=== PATIENT | female | born 1960 | race African-American/Black ===

== ENCOUNTER 2016-10-18 10:02 | Inpatient (IN) | payer OTHER ==
[2016-10-18 10:40] VITALS: BMI 32.3
--- NOTE | 2016-10-18 12:30 | HP ---
CIWA Score - CIWA Score Nausea/Vomitin-No Nausea/No Vomiting Muscle Tremors: 4-Moderate,w/Arms Extend Anxiety: 4-Mod. Anxious/Guarded Agitation: 4-Moderately Restless Paroxysmal Sweats: 1-Minimal Palms Moist Orientation: 0-Oriented Tacttile Disturbances: 3-Moderate Itch/Numb/Burn Auditory Disturbances: 0-None Visual Disturbances: 0-None Headache: 0-None Present CIWA-Ar Total Score: 16 Admission ROS BHS - HPI Chief Complaint: DETOX TX FOR ALCOHOL DEPENDENCE Allergies/Adverse Reactions: Allergies Allergy/AdvReac Type Severity Reaction Status Date / Time No Known Allergies Allergy Verified 10/18/16 11:22 History of Present Illness: 56 Y/O AA/FEMALE WITH A HX OF ALCOHOL DEPENDENCE SEEKING DETOX TX. Exam Limitations: No Limitations - Ebola screening Have you traveled outside of the country in the last 21 days: No Have you had contact with anyone from an Ebola affected area: No Have you been sick,other than usual withdrawal symptoms: No Do you have a fever: No - Review of Systems Constitutional: Chills, Night Sweats, Changes in sleep EENT: reports: Blurred Vision (WEARS GLASSES), Tearing, Nose Congestion, Dental Problems (MISSING TEETH) Respiratory: reports: No Symptoms reported Cardiac: reports: Lightheadedness GI: reports: Constipated, Diarrhea, Abdominal cramping : reports: Frequency Musculoskeletal: reports: Back Pain, Joint Pain, Muscle Pain, Other (HX ARTHRITIS) Integumentary: reports: Rash (RIGHT FOOT) Neuro: reports: Unsteady Gait Endocrine: reports: No Symptoms Reported Hematology: reports: Anemia Psychiatric: reports: Orientated x3, Agitated, Anxious, Depressed (HX DEPRESSION ) Other Systems: Reviewed and Negative Patient History - Patient Medical History Hx Anemia: Yes (NO CURRENT MED) Hx Asthma: No Hx Chronic Obstructive Pulmonary Disease (COPD): No Hx Cancer: No Hx Cardiac Disorders: No Hx Congestive Heart Failure: No Hx Hypertension: No Hx Hypercholesterolemia: No (NOT SURE ) Hx Pacemaker: Yes (ON MED) HX Cerebrovascular Accident: No Hx Seizures: No Hx Dementia: No Hx Diabetes: No Hx Gastrointestinal Disorders: No Hx Liver Disease: No Hx Genitourinary Disorders: No Hx Sexually Transmitted Disorders: No Hx Renal Disease (ESRD): No Hx Thyroid Disease: No Hx Human Immunodeficiency Virus (HIV): No (LAST 11/09 NEGATIVE) Hx Hepatitis C: No Hx Depression: Yes (NO DEPAKOTE) Hx Suicide Attempt: No (DENIES) Hx Bipolar Disorder: No Hx Schizophrenia: No - Patient Surgical History Past Surgical History: Yes Hx Neurologic Surgery: No Hx Cataract Extraction: No Hx Cardiac Surgery: No Hx Lung Surgery: No Hx Breast Surgery: No Hx Breast Biopsy: No Hx Abdominal Surgery: No Hx Appendectomy: No Hx Cholecystectomy: No Hx Genitourinary Surgery: No Hx Section: No Hx Orthopedic Surgery: Yes (rt big toe 2008 BUNION) Other Surgical History: tubal ligation at age 26 Varicose veins bilateral sx. 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 History Hx Alcohol Use: Yes (VODKA/BEER) Hx Substance Use: Yes (CRACK) Substance Use Type: Alcohol, Cocaine Hx Substance Use Treatment: Yes ([facility]) - Substances Abused Alcohol Route: Oral Frequency: Daily Amount used: 1 QT VODKA Age of first use: 34 Date of Last Use: 10/18/16 Crack Route: Smoking Frequency: Daily Amount used: $50 Age of first use: 32 Date of Last Use: 10/17/16 Family Disease History - Family Disease History Family Disease History: Heart Disease: Mother, Other: Sister (HTN) Admission Physical Exam S - Vital Signs Vital Signs: Vital Signs - 24 hr 10/18/16 10:13 Temperature 98.6 F Pulse Rate 76 Respiratory 18 Rate Blood Pressure 142/84 - Physical General Appearance: Yes: Moderate Distress, Alcohol on Breath, Intoxicated, Irritable, Anxious HEENTM: Yes: EOMI, Normocephalic, ODILIA, Pharynx Normal Respiratory: Yes: Chest Non-Tender, Lungs Clear, Normal Breath Sounds, No Respiratory Distress Breast: Yes: Breast Exam Deferred Cardiology: Yes: Regular Rhythm, Regular Rate, S1, S2 Abdominal: Yes: Normal Bowel Sounds, Non Tender, Soft Genitourinary: Yes: Other (N/C) Back: Yes: Within Normal Limits Musculoskeletal: Yes: full range of Motion, Gait Steady Extremities: Yes: Normal Range of Motion, Non-Tender 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, Fully Oriented, Alert, Motor Strength 5/5 Integumentary: Yes: Dry, Warm, Rash (RIGHT FOOT) Lymphatic: Yes: Within Normal Limits - Diagnostic (1) Alcohol dependence with uncomplicated withdrawal Current Visit: Yes Status: Acute (2) Cocaine dependence Current Visit: Yes Status: Chronic Qualifiers: Substance use status: uncomplicated Qualified Code(s): F14.20 - Cocaine dependence, uncomplicated (3) Nicotine dependence Current Visit: Yes Status: Chronic Qualifiers: Nicotine product type: cigarettes Substance use status: uncomplicated Qualified Code(s): F17.210 - Nicotine dependence, cigarettes, uncomplicated (4) Tinea pedis Current Visit: Yes Status: Chronic Qualifiers: Laterality: right Qualified Code(s): B35.3 - Tinea pedis (5) History of anemia Current Visit: Yes Status: Suspected Cleared for Admission [facility] - Detox or Rehab [facility] Level of Care: Medically Managed Detox Regimen/Protocol: Librium [facility] Breath Alcohol Content Breath Alcohol Content: 0.029 Urine Pregancy Test - Result Urine Test Results: Negative- NO Line Present Urine Drug Screen - Results Drug Screen Negative: No Urine Drug Screen Results: MALDONADO-Cocaine
[2016-10-18] MEDS ORDERED: ACETAMINOPHEN 325 MG TABLET (FP) PO PRN (12:38)
[2016-10-18] MEDS ORDERED: diphenhydrAMINE HCL 50 MG CAPSULE PO PRN (12:38)
[2016-10-18] MEDS ORDERED: MAGNESIUM CITRATE 300 ML BOTTLE PO PRN (12:38)
[2016-10-18] MEDS ORDERED: guaiFENesin/D-METHORPHAN HB 10 ML UNIT-DOSE CUPS PO PRN (12:38)
[2016-10-18] MEDS ORDERED: MAGNESIUM HYDROX 2400MG/30ML ORAL SUSPENSION 30 ML CUP PO PRN (12:38)
[2016-10-18] MEDS ORDERED: hydrOXYzine PAMOATE 25 MG CAPSULE (FP) PO PRN (12:38)
[2016-10-18] MEDS ORDERED: IBUPROFEN 400 MG TABLET (FP) PO PRN (12:38)
[2016-10-18] MEDS ORDERED: P-EPHED 60MG/TRIPROLIDI 2.5MG TABLET PO PRN (12:38)
[2016-10-18] MEDS ORDERED: chlordiazePOXIDE HCL 25 MG CAPSULE PO PRN (12:38)
[2016-10-18] MEDS ORDERED: MENTHOL/PHENOL 1 EACH UD MM PRN (12:38)
[2016-10-18] MEDS: CYCLOBENZAPRINE HCL 10 MG TABLET (FP) PO SCH ×2 (14:48→22:57)
[2016-10-18] MEDS: NICOTINE 14 MG/24 HOURS TOPICAL PATCH TD SCH (15:00)
[2016-10-18] MEDS: MAG HYDROX/AL HYDROX/SIMETH 30 ML UNIT-DOSE CUP PO PRN (16:15)
[2016-10-18 16:43] LABS: URINE APPEARANCE CLEAR; URINE BILIRUBIN NEGATIVE (NEGATIVE); URINE BLOOD NEGATIVE (NEGATIVE); URINE COLOR LTYELLOW; URINE GLUCOSE (UA) NEGATIVE (NEGATIVE); URINE KETONE NEGATIVE (NEGATIVE); URINE LEUK ESTERASE NEGATIVE (NEGATIVE); URINE NITRITE NEGATIVE (NEGATIVE); URINE PROTEIN NEGATIVE (NEGATIVE); URINE UROBILINOGEN NEGATIVE E.U./dl (0.2-1.0)
[2016-10-18] MEDS: chlordiazePOXIDE HCL 25 MG CAPSULE PO SCH ×2 (17:57→22:57)
[2016-10-18] MEDS: ATORVASTATIN CA 10 MG TABLET (FP) PO SCH (22:57)
[2016-10-18] MEDS: NAPROXEN 500 MG TABLET (FP) PO SCH (22:57)
[2016-10-18] MEDS: THIAMINE HCL 100 MG TABLET (FP) PO SCH (22:57)
[2016-10-19] MEDS: MAG HYDROX/AL HYDROX/SIMETH 30 ML UNIT-DOSE CUP PO PRN ×2 (02:16→17:52)
[2016-10-19] MEDS: chlordiazePOXIDE HCL 25 MG CAPSULE PO SCH ×4 (05:52→22:35)
[2016-10-19] MEDS: CYCLOBENZAPRINE HCL 10 MG TABLET (FP) PO SCH ×3 (05:52→22:35)
[2016-10-19] MEDS ORDERED: cloNIDine HCL 0.1 MG TABLET PO ONE (07:29)
[2016-10-19 10:03] LABS: MCH 33.9 pg (25.7-33.7); MCHC 33.7 g/dl (32.0-36.0); MEAN CELL VOLUME 100.5 fl (80-96); MEAN PLT VOLUME 8.9 fl (7.5-11.1); PLATELET COUNT 232 K/MM3 (134-434); RDW 13.7 % (11.6-15.6); WHITE BLOOD COUNT 3.4 K/mm3 (4.0-10.0)
[2016-10-19] MEDS: PRENATAL VITAMINS W/ FOLIC ACID TABLET (FP) PO SCH (10:20)
[2016-10-19] MEDS: cloNIDine HCL 0.1 MG TABLET PO PRN ×2 (10:20→22:35)
[2016-10-19] MEDS: ASPIRIN COATED 81 MG TABLET.EC PO SCH (10:21)
[2016-10-19] MEDS: NAPROXEN 500 MG TABLET (FP) PO SCH ×2 (10:21→22:35)
[2016-10-19] MEDS: FLUTICASONE PROP 0.05% 16 GM NASAL SPRAY NS SCH (10:21)
--- NOTE | 2016-10-19 10:21 | CONSULT ---
[facility] Psychiatric Consult - Data Date of interview: 10/19/16 Admission source: [facility] Identifying data: This is 56 years old female with history of Bipolar disorder intoxicted with: Alcoholl, Cocaine and Nicotine Substance Abuse History: Smoking history: Current every day smoker. Have you smoked in the past 12 months: Yes. Aproximately how many cigarettes per day: 10. Hx Chewing Tobacco Use: No. Initiated information on smoking cessation: Yes. 'Breaking Loose' booklet given: 10/18/16. - Substance & Tx. History. Hx Alcohol Use: Yes (VODKA/BEER). Hx Substance Use: Yes (CRACK). Substance Use Type: Alcohol, Cocaine. Hx Substance Use Treatment: Yes ([facility]OX). - Substances Abused. Alcohol. Route: Oral. Frequency: Daily. Amount used: 1 QT VODKA. Age of first use: 34. Date of Last Use: 10/18/16. Crack. Route: Smoking. Frequency: Daily. Amount used: $50. Age of first use: 32. Date of Last Use: 10/17/16 Medical History: Anemia history, UTI history Psychiatric History: Patient reports to carry Bipolar disorder and satable on Depakote 500mg po bid, last time taking yesterday. Patient willing to contonue Depakote order Physical/Sexual Abuse/Trauma History: Denies Additional Comment: Depakote 500mg po bid Mental Status Exam - Mental Status Exam Alert and Oriented to: Person Cognitive Function: Fair Patient Appearance: Unkempt Mood: Anxious Patient Behavior: Cooperative Speech Pattern: Appropriate Voice Loudness: Normal Thought Process: Goal Oriented Thought Disorder: Being Controlled Hallucinations: Denies Suicidal Ideation: Denies Homicidal Ideation: Denies Insight/Judgement: Fair Sleep: Difficulty falling asleep Appetite: Weight gain Muscle strength/Tone: Normal Gait/Station: Normal Additional Comments: Depakote 500mg po bid Psychiatric Findings - Problem List ([place] 1, 2,3) (1) Alcohol dependence with uncomplicated withdrawal Current Visit: Yes Status: Acute (2) Cocaine dependence Current Visit: Yes Status: Chronic Qualifiers: Substance use status: uncomplicated Qualified Code(s): F14.20 - Cocaine dependence, uncomplicated (3) Nicotine dependence Current Visit: Yes Status: Chronic Qualifiers: Nicotine product type: cigarettes Substance use status: uncomplicated Qualified Code(s): F17.210 - Nicotine dependence, cigarettes, uncomplicated (4) Alcohol dependence Current Visit: No Status: Chronic (5) Bipolar II disorder Current Visit: No Status: Chronic (6) Bipolar disorder Current Visit: Yes Status: Acute - Initial Treatment Plan Initial Treatment Plan: Depakote 500mg po bid
[2016-10-19] MEDS: NICOTINE 14 MG/24 HOURS TOPICAL PATCH TD SCH (10:22)
[2016-10-19] MEDS: DIVALPROEX SODIUM 500 MG TABLET E.C. PO SCH ×2 (10:23→22:35)
[2016-10-19 10:29] LABS: ALBUMIN 3.6 g/dl (3.4-5.0); BILIRUBIN,TOTAL 0.4 mg/dL (0.2-1.0); CALCIUM 8.6 mg/dL (8.5-10.1); TOT PROT 6.9 g/dl (6.4-8.2)
[2016-10-19] MEDS: LOPERAMIDE HCL 2 MG CAPSULE PO PRN (11:34)
--- NOTE | 2016-10-19 12:08 | PN ---
S CIWA - CIWA Score Nausea/Vomitin-Mild Nausea/No Vomiting Muscle Tremors: 4-Moderate,w/Arms Extend Anxiety: 4-Mod. Anxious/Guarded Agitation: 4-Moderately Restless Paroxysmal Sweats: 3 Orientation: 0-Oriented Tacttile Disturbances: 0-None Auditory Disturbances: 0-None Visual Disturbances: 0-None Headache: 1-Very Mild CIWA-Ar Total Score: 17 BHS Progress Note (SOAP) Subjective: irritable sweats shakes interrupted sleep headache diarrhea Objective: 10/19/16 12:05 Vital Signs Temperature 98.1 F 10/19/16 09:45 Pulse Rate 76 10/19/16 09:45 Respiratory Rate 18 10/19/16 09:45 Blood Pressure 161/87 10/19/16 09:45 O2 Sat by Pulse Oximetry (%) Laboratory Tests 10/18/16 10/19/16 10/19/16 14:00 06:00 06:00 WBC 3.4 L RBC 3.72 Hgb 12.6 Hct 37.3 MCV 100.5 H MCHC 33.7 RDW 13.7 Plt Count 232 MPV 8.9 D Sodium 142 Potassium 3.8 Chloride 111 H Carbon Dioxide 24 Anion Gap 7 L BUN 15 Creatinine 1.0 Creat Clearance w eGFR 57.35 Random Glucose 90 Calcium 8.6 Total Bilirubin 0.4 AST 15 D ALT 19 Alkaline Phosphatase 79 Total Protein 6.9 Albumin 3.6 Urine Color Ltyellow Urine Appearance Clear Urine pH 6.0 D Ur Specific [place] 1.012 Urine Protein Negative Urine Glucose (UA) Negative Urine Ketones Negative Urine Blood Negative Urine Nitrite Negative Urine Bilirubin Negative Urine Urobilinogen Negative Ur Leukocyte Esterase Negative awake/alert ambulating no acute distress Assessment: 10/19/16 12:06 withdrawal sx Plan: continue detox increase fluids immodium prn
--- NOTE | 2016-10-19 14:29 | EKG ---
Test Reason : Blood Pressure : / mmHG Vent. Rate : 077 BPM Atrial Rate : 077 BPM P-R Int : 148 ms QRS Dur : 092 ms QT Int : 418 ms P-R-T Axes : 073 046 059 degrees QTc Int : 473 ms NORMAL SINUS RHYTHM RIGHT ATRIAL ENLARGEMENT BORDERLINE ECG NO PREVIOUS ECGS AVAILABLE Confirmed by MADELEINE CASON, CLAUDINE ([id number]) on 10/19/2016 2:29:03 PM Referred By: Confirmed By:CLAUDINE SALVADOR MD
[2016-10-19] MEDS: NICOTINE POLACRILEX 2 MG GUM BUC PRN (17:53)
[2016-10-19] MEDS: THIAMINE HCL 100 MG TABLET (FP) PO SCH (22:35)
[2016-10-19] MEDS: ATORVASTATIN CA 10 MG TABLET (FP) PO SCH (22:35)
[2016-10-20] MEDS: chlordiazePOXIDE HCL 25 MG CAPSULE PO SCH ×2 (06:05→10:35)
[2016-10-20] MEDS: CYCLOBENZAPRINE HCL 10 MG TABLET (FP) PO SCH ×3 (06:05→22:53)
[2016-10-20] MEDS: NICOTINE POLACRILEX 2 MG GUM BUC PRN (09:23)
[2016-10-20] MEDS: NAPROXEN 500 MG TABLET (FP) PO SCH ×2 (10:35→22:53)
[2016-10-20] MEDS: ASPIRIN COATED 81 MG TABLET.EC PO SCH (10:35)
[2016-10-20] MEDS: DIVALPROEX SODIUM 500 MG TABLET E.C. PO SCH ×2 (10:35→22:53)
[2016-10-20] MEDS: NICOTINE 14 MG/24 HOURS TOPICAL PATCH TD SCH (10:35)
[2016-10-20] MEDS: PRENATAL VITAMINS W/ FOLIC ACID TABLET (FP) PO SCH (10:35)
[2016-10-20] MEDS: FLUTICASONE PROP 0.05% 16 GM NASAL SPRAY NS SCH (10:36)
--- NOTE | 2016-10-20 10:41 | PN ---
S CIWA - CIWA Score Nausea/Vomitin Muscle Tremors: 2 Anxiety: 3 Agitation: 2 Paroxysmal Sweats: No Perspiration Orientation: 0-Oriented Tacttile Disturbances: 0-None Auditory Disturbances: 2-Mild Harshness/Frighten Visual Disturbances: 1-Very Mild Sensitivity Headache: 1-Very Mild CIWA-Ar Total Score: 14 S Progress Note (SOAP) Objective: 10/20/16 10:41 Laboratory Tests 10/18/16 10/19/16 10/19/16 14:00 06:00 06:00 WBC 3.4 L RBC 3.72 Hgb 12.6 Hct 37.3 MCV 100.5 H MCHC 33.7 RDW 13.7 Plt Count 232 MPV 8.9 D Sodium 142 Potassium 3.8 Chloride 111 H Carbon Dioxide 24 Anion Gap 7 L BUN 15 Creatinine 1.0 Creat Clearance w eGFR 57.35 Random Glucose 90 Calcium 8.6 Total Bilirubin 0.4 AST 15 D ALT 19 Alkaline Phosphatase 79 Total Protein 6.9 Albumin 3.6 Urine Color Ltyellow Urine Appearance Clear Urine pH 6.0 D Ur Specific [place] 1.012 Urine Protein Negative Urine Glucose (UA) Negative Urine Ketones Negative Urine Blood Negative Urine Nitrite Negative Urine Bilirubin Negative Urine Urobilinogen Negative Ur Leukocyte Esterase Negative RPR Titer 10/19/16 06:00 WBC RBC Hgb Hct MCV MCHC RDW Plt Count MPV Sodium Potassium Chloride Carbon Dioxide Anion Gap BUN Creatinine Creat Clearance w eGFR Random Glucose Calcium Total Bilirubin AST ALT Alkaline Phosphatase Total Protein Albumin Urine Color Urine Appearance Urine pH Ur Specific [place] Urine Protein Urine Glucose (UA) Urine Ketones Urine Blood Urine Nitrite Urine Bilirubin Urine Urobilinogen Ur Leukocyte Esterase RPR Titer Nonreactive Vital Signs - 24 hr 10/19/16 10/19/16 10/19/16 15:01 17:53 22:12 Temperature 98.8 F 97.9 F 98.4 F Pulse Rate 74 74 61 Respiratory 20 18 16 Rate Blood Pressure 125/85 140/83 114/84 10/20/16 10/20/16 10/20/16 00:30 03:30 06:46 Temperature 97.5 F L Pulse Rate 71 Respiratory 18 18 18 Rate Blood Pressure 150/90 10/20/16 09:44 Temperature 98.2 F Pulse Rate 74 Respiratory 18 Rate Blood Pressure 128/82 Assessment: 01/27/17 10:41 ongoing withdrawal Plan: continue detox protocol
[2016-10-20] MEDS: MAG HYDROX/AL HYDROX/SIMETH 30 ML UNIT-DOSE CUP PO PRN (14:47)
[2016-10-20] MEDS ORDERED: ONDANSETRON *ODT* 4 MG TABLET SL PRN (17:00)
[2016-10-20] MEDS ORDERED: ONDANSETRON *ODT* 4 MG TABLET SL ONE (17:45)
[2016-10-20] MEDS: chlordiazePOXIDE 5 MG CAPSULE PO SCH ×2 (19:22→22:53)
[2016-10-20] MEDS: THIAMINE HCL 100 MG TABLET (FP) PO SCH (22:53)
[2016-10-20] MEDS: ATORVASTATIN CA 10 MG TABLET (FP) PO SCH (22:53)
[2016-10-21] MEDS: CYCLOBENZAPRINE HCL 10 MG TABLET (FP) PO SCH ×3 (05:29→22:59)
[2016-10-21] MEDS: chlordiazePOXIDE 5 MG CAPSULE PO SCH ×2 (05:30→10:36)
[2016-10-21] MEDS: NICOTINE POLACRILEX 2 MG GUM BUC PRN ×2 (05:32→10:38)
--- NOTE | 2016-10-21 10:12 | PN ---
BHS Progress Note (SOAP) Subjective: nausea, sweats, interrupted sleep, anxiety, tremor Objective: 10/21/16 10:12 Vital Signs - 8 hr 10/21/16 10/21/16 03:30 06:00 Temperature 98.1 F Pulse Rate 91 H Respiratory 20 18 Rate Blood Pressure 138/95 Laboratory Tests 10/18/16 10/19/16 10/19/16 14:00 06:00 06:00 WBC 3.4 L RBC 3.72 Hgb 12.6 Hct 37.3 MCV 100.5 H MCHC 33.7 RDW 13.7 Plt Count 232 MPV 8.9 D Sodium 142 Potassium 3.8 Chloride 111 H Carbon Dioxide 24 Anion Gap 7 L BUN 15 Creatinine 1.0 Creat Clearance w eGFR 57.35 Random Glucose 90 Calcium 8.6 Total Bilirubin 0.4 AST 15 D ALT 19 Alkaline Phosphatase 79 Total Protein 6.9 Albumin 3.6 Urine Color Ltyellow Urine Appearance Clear Urine pH 6.0 D Ur Specific [place] 1.012 Urine Protein Negative Urine Glucose (UA) Negative Urine Ketones Negative Urine Blood Negative Urine Nitrite Negative Urine Bilirubin Negative Urine Urobilinogen Negative Ur Leukocyte Esterase Negative Valproic Acid RPR Titer 10/19/16 10/20/16 06:00 06:00 WBC RBC Hgb Hct MCV MCHC RDW Plt Count MPV Sodium Potassium Chloride Carbon Dioxide Anion Gap BUN Creatinine Creat Clearance w eGFR Random Glucose Calcium Total Bilirubin AST ALT Alkaline Phosphatase Total Protein Albumin Urine Color Urine Appearance Urine pH Ur Specific [place] Urine Protein Urine Glucose (UA) Urine Ketones Urine Blood Urine Nitrite Urine Bilirubin Urine Urobilinogen Ur Leukocyte Esterase Valproic Acid < 3.000 L RPR Titer Nonreactive Assessment: 10/21/16 10:12 withdrawal sx Plan: cont detox
[2016-10-21] MEDS: DIVALPROEX SODIUM 500 MG TABLET E.C. PO SCH ×2 (10:34→22:58)
[2016-10-21] MEDS: ASPIRIN COATED 81 MG TABLET.EC PO SCH (10:35)
[2016-10-21] MEDS: NICOTINE 14 MG/24 HOURS TOPICAL PATCH TD SCH (10:35)
[2016-10-21] MEDS: NAPROXEN 500 MG TABLET (FP) PO SCH (10:35)
[2016-10-21] MEDS: FLUTICASONE PROP 0.05% 16 GM NASAL SPRAY NS SCH (10:35)
[2016-10-21] MEDS: PRENATAL VITAMINS W/ FOLIC ACID TABLET (FP) PO SCH (10:38)
[2016-10-21] MEDS: chlordiazePOXIDE HCL 10 MG CAPSULE PO SCH ×2 (17:17→22:59)
[2016-10-21] MEDS: THIAMINE HCL 100 MG TABLET (FP) PO SCH (22:59)
[2016-10-21] MEDS: ATORVASTATIN CA 10 MG TABLET (FP) PO SCH (22:59)
[2016-10-22] MEDS: MAG HYDROX/AL HYDROX/SIMETH 30 ML UNIT-DOSE CUP PO PRN (03:06)
[2016-10-22] MEDS: chlordiazePOXIDE HCL 10 MG CAPSULE PO SCH (06:19)
[2016-10-22] MEDS: CYCLOBENZAPRINE HCL 10 MG TABLET (FP) PO SCH (06:26)
[2016-10-22 06:54] VITALS: BP 141/90; PULSE 70; TEMP 99
[2016-10-22] MEDS: LOPERAMIDE HCL 2 MG CAPSULE PO PRN (07:20)
--- NOTE | 2016-10-22 08:55 | DS ---
[facility] Detox Discharge Summary Admission Date: 10/18/16 Discharge Date: 10/22/16 - History Present History: Alcohol Dependence, Cocaine Dependence Pertinent Past History: RT. FOOT SURGERY - Physical Exam Results Vital Signs: Vital Signs Temperature 99.0 F 10/22/16 06:00 Pulse Rate 70 10/22/16 06:00 Respiratory Rate 18 10/22/16 06:00 Blood Pressure 141/90 10/22/16 06:00 O2 Sat by Pulse Oximetry (%) Pertinent Admission Physical Exam Findings: WITHDRAWAL SX. Laboratory Last Values WBC 3.4 K/mm3 (4.0-10.0) L 10/19/16 06:00 RBC 3.72 M/mm3 (3.60-5.2) 10/19/16 06:00 Hgb 12.6 GM/dL (10.7-15.3) 10/19/16 06:00 Hct 37.3 % (32.4-45.2) 10/19/16 06:00 MCV 100.5 fl (80-96) H 10/19/16 06:00 MCHC 33.7 g/dl (32.0-36.0) 10/19/16 06:00 RDW 13.7 % (11.6-15.6) 10/19/16 06:00 Plt Count 232 K/MM3 (134-434) 10/19/16 06:00 MPV 8.9 fl (7.5-11.1) D 10/19/16 06:00 Sodium 142 mmol/L (136-145) 10/19/16 06:00 Potassium 3.8 mmol/L (3.5-5.1) 10/19/16 06:00 Chloride 111 mmol/L (98-107) H 10/19/16 06:00 Carbon Dioxide 24 mmol/L (21-32) 10/19/16 06:00 Anion Gap 7 (8-16) L 10/19/16 06:00 BUN 15 mg/dL (7-18) 10/19/16 06:00 Creatinine 1.0 mg/dL (0.55-1.02) 10/19/16 06:00 Creat Clearance w eGFR 57.35 (>60) 10/19/16 06:00 Random Glucose 90 mg/dL (74-106) 10/19/16 06:00 Calcium 8.6 mg/dL (8.5-10.1) 10/19/16 06:00 Total Bilirubin 0.4 mg/dL (0.2-1.0) 10/19/16 06:00 AST 15 U/L (15-37) D 10/19/16 06:00 ALT 19 U/L (12-78) 10/19/16 06:00 Alkaline Phosphatase 79 U/L (45-117) 10/19/16 06:00 Total Protein 6.9 g/dl (6.4-8.2) 10/19/16 06:00 Albumin 3.6 g/dl (3.4-5.0) 10/19/16 06:00 Urine Color Ltyellow 10/18/16 14:00 Urine Appearance Clear 10/18/16 14:00 Urine pH 6.0 (5.0-8.0) D 10/18/16 14:00 Ur Specific [place] 1.012 (1.001-1.035) 10/18/16 14:00 Urine Protein Negative (NEGATIVE) 10/18/16 14:00 Urine Glucose (UA) Negative (NEGATIVE) 10/18/16 14:00 Urine Ketones Negative (NEGATIVE) 10/18/16 14:00 Urine Blood Negative (NEGATIVE) 10/18/16 14:00 Urine Nitrite Negative (NEGATIVE) 10/18/16 14:00 Urine Bilirubin Negative (NEGATIVE) 10/18/16 14:00 Urine Urobilinogen Negative E.U./dl (0.2-1.0) 10/18/16 14:00 Ur Leukocyte Esterase Negative (NEGATIVE) 10/18/16 14:00 Valproic Acid < 3.000 ug/ml (50-100) L 10/20/16 06:00 RPR Titer Nonreactive (NONREACTIVE) 10/19/16 06:00 LABS NOTED - Treatment Hospital Course: Detox Protocol Followed, Detoxed Safely, Responded well, Discharged Condition Good, Rehab Referral Accepted - Medication Discharge Medications: Ambulatory Orders Aspirin [Aspirin EC] 1 tablet PO DAILY 08/02/16 Divalproex [Depakote -] 500 mg PO BID 08/02/16 Fluticasone Prop 0.05% Nasal [Flonase -] 1 spray NS DAILY 08/02/16 Cetirizine HCl 10 mg PO DAILY 10/18/16 Cyclobenzaprine HCl [Flexeril -] 10 mg PO HS 10/18/16 Diclofenac Sodium [Voltaren -] 75 mg PO BID 10/18/16 Meloxicam [Mobic (Nf) -] 15 mg PO DAILY 10/18/16 Simvastatin [Zocor -] 20 mg PO HS 10/18/16 Divalproex [Depakote -] 500 mg PO BID #60 tablet.ec 10/19/16 - Diagnosis (1) Alcohol dependence with uncomplicated withdrawal Current Visit: Yes Status: Acute (2) Cocaine dependence Current Visit: Yes Status: Chronic Qualifiers: Substance use status: uncomplicated Qualified Code(s): F14.20 - Cocaine dependence, uncomplicated (3) Nicotine dependence Current Visit: Yes Status: Chronic Qualifiers: Nicotine product type: cigarettes Substance use status: uncomplicated Qualified Code(s): F17.210 - Nicotine dependence, cigarettes, uncomplicated (4) Bipolar II disorder Current Visit: No Status: Chronic - AMA Did Patient Leave Against Medical Advice: No
== END 2016-10-22 09:36 | disposition home or self-care (01) | DRG 774 ==
LOC: YASAS 10:02 → Y6N 13:23
PROVIDERS: ADMIT Internal Medicine Addiction Medicine; ATTEND Internal Medicine Addiction Medicine
PROC: HZ2ZZZZ Detoxification Services for Substance Abuse Treatment (ICD-10-PCS; principal; 2016-10-18)
DX: F10.230 Alcohol dependence with withdrawal, uncomplicated (principal); F14.20 Cocaine dependence, uncomplicated; F17.210 Nicotine dependence, cigarettes, uncomplicated; F31.81 Bipolar II disorder; B35.3 Tinea pedis; Z86.2 Personal history of diseases of the blood and blood-forming organs and certain disorders involving the immune mechanism; Z95.0 Presence of cardiac pacemaker
CPT/HCPCS: 36415; 80053; 80164; 81003; 85027; 86593; 93005; 93010

== ENCOUNTER 2018-09-14 12:58 | Inpatient (IN) | payer OTHER ==
[2018-09-14 13:12] VITALS: BMI 32.4
--- NOTE | 2018-09-14 14:01 | HP ---
CIWA Score Nausea/Vomitin Muscle Tremors: 2 Anxiety: 2 Agitation: 2 Paroxysmal Sweats: 1-Minimal Palms Moist Orientation: 0-Oriented Tacttile Disturbances: 1-Very Mild Itch/Numbness Auditory Disturbances: 1-Very Mild Visual Disturbances: 0-None Headache: 2-Mild CIWA-Ar Total Score: 13 - Admission Criteria [facility] Guidelines: Admission for Medically Managed Detox: Requires at least one of the followin. CIWA greater than 12 2. Seizures within the past 24 hours 3. Delirium tremens within the past 24 hours 4. Hallucinations within the past 24 hours 5. Acute intervention needed for co occurring medical disorder 6. Acute intervention needed for co occurring psychiatric disorder 7. Severe withdrawal that cannot be handled at a lower level of care (continued vomiting, continued diarrhea, abnormal vital signs) requiring intravenous medication and/or fluids 8. Patient presents the following: CIWA greater than 12 Admission Criteria Met: Admission criteria met Admission ROS [facility] - HPI Chief Complaint: i need help to stop drinking alcohol amnd crack Allergies/Adverse Reactions: Allergies Allergy/AdvReac Type Severity Reaction Status Date / Time No Known Allergies Allergy Verified 09/14/18 14:56 History of Present Illness: this 58 years old female with alcohol and cocaine dependence,withdrawal symptom, seeking detox,last detox [facility] 10/18/16 to 10/22/16 syncope nicotine dependence arthritis both knees,back,shoulder multiple admissions for detox but keep relapsing longest period of sobriety 7 years Exam Limitations: No Limitations - Ebola screening Have you been sick,other than usual withdrawal symptoms: No - Review of Systems Constitutional: Loss of Appetite, Malaise, Night Sweats, Changes in sleep, Weakness EENT: reports: Nose Congestion Respiratory: reports: No Symptoms reported Cardiac: reports: No Symptoms Reported GI: reports: Nausea, Indigestion, Abdominal cramping Musculoskeletal: reports: Back Pain, Muscle Pain Integumentary: reports: Dryness Neuro: reports: Headache, Tremors Endocrine: reports: No Symptoms Reported Hematology: reports: No Symptoms Reported Psychiatric: reports: No Sypmtoms Reported, Judgement Intact, Mood/Affect Appropiate, Orientated x3 Patient History - Patient Medical History Hx Anemia: Yes (NO CURRENT MED) Hx Asthma: No Hx Chronic Obstructive Pulmonary Disease (COPD): No Hx Cancer: No Hx Cardiac Disorders: No Hx Congestive Heart Failure: No Hx Hypertension: No Hx Hypercholesterolemia: No (NOT SURE ) Hx Pacemaker: No (ON MED) HX Cerebrovascular Accident: No Hx Seizures: No Hx Dementia: No Hx Diabetes: No Hx Gastrointestinal Disorders: No Hx Liver Disease: No Hx Genitourinary Disorders: No Hx Sexually Transmitted Disorders: No Hx Renal Disease (ESRD): No Hx Thyroid Disease: No Hx Human Immunodeficiency Virus (HIV): No (10/11 negative) Hx Hepatitis C: No Hx Depression: Yes (NO DEPAKOTE) Hx Suicide Attempt: No (DENIES) Hx Bipolar Disorder: Yes (on med) Hx Schizophrenia: No Other Medical History: no suicidal,no homiucidal - Patient Surgical History Past Surgical History: Yes Hx Neurologic Surgery: No Hx Cataract Extraction: No Hx Cardiac Surgery: No Hx Lung Surgery: No Hx Breast Surgery: No Hx Breast Biopsy: No Hx Abdominal Surgery: No Hx Appendectomy: No Hx Cholecystectomy: No Hx Genitourinary Surgery: No Hx Section: No Hx Orthopedic Surgery: Yes (rt big toe 2008 [facility]) Other Surgical History: tubal ligation at age 26 Varicose veins bilateral sx. Anesthesia Reaction: No - PPD History Previous Implant?: Yes Documented Results: Negative w/o proof Implanted On Prior [facility] Admission?: Yes Date: 05/28/16 Results: 0 MM PPD to be Administered?: Yes - Reproductive History Patient is a Female of Child Bearing Age (11 -55 yrs old): No Patient : No - Smoking Cessation Smoking history: Current every day smoker Have you smoked in the past 12 months: Yes Aproximately how many cigarettes per day: 10 Hx Chewing Tobacco Use: No Initiated information on smoking cessation: Yes 'Breaking Loose' booklet given: 09/14/18 - Substance & Tx. History Hx Alcohol Use: Yes Hx Substance Use: Yes Substance Use Type: Alcohol, Cocaine Hx Substance Use Treatment: Yes ([facility] 10/18/16 to 10/22/16) - Substances Abused Alcohol Route: Oral Frequency: Daily Amount used: 1/2pint of vodka/6 packs of 12 ozs of beer Age of first use: 34 Date of Last Use: 09/14/18 Crack Route: Smoking Frequency: 3-6 times per week Amount used: 40$ Age of first use: 34 Date of Last Use: 09/13/18 Family Disease History - Family Disease History Family Disease History: Heart Disease: Mother, Other: Sister (HTN) Admission Physical Exam [facility] - Vital Signs Vital Signs: Vital Signs - 24 hr 09/14/18 13:04 Temperature 98.1 F Pulse Rate 63 Respiratory 18 Rate Blood Pressure 156/87 - Physical General Appearance: Yes: Moderate Distress, Tremorous, Irritable, Sweating, Anxious HEENTM: Yes: Normal ENT Inspection, ODILIA, Pharynx Normal Respiratory: Yes: Lungs Clear, Normal Breath Sounds, No Respiratory Distress Neck: Yes: Within Normal Limits, Supple, Trachea in good position Breast: Yes: Breast Exam Deferred Cardiology: Yes: Within Normal Limits, Regular Rhythm, Regular Rate, S1, S2 Abdominal: Yes: Within Normal Limits, Normal Bowel Sounds, Non Tender, Soft Genitourinary: Yes: Within Normal Limits Back: Yes: Muscle Spasm Musculoskeletal: Yes: full range of Motion, Back pain, Muscle Pain Extremities: Yes: Within Normal Limits, Normal Range of Motion, Tremors 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, Fully Oriented, Alert, Motor Strength 5/5 Integumentary: Yes: Dry Lymphatic: Yes: Within Normal Limits - Diagnostic (1) Alcohol dependence with uncomplicated withdrawal Current Visit: No Status: Acute (2) Bipolar disorder Current Visit: No Status: Acute (3) Status post right foot surgery Current Visit: No Status: Acute (4) Cocaine dependence Current Visit: No Status: Chronic Qualifiers: Substance use status: uncomplicated Qualified Code(s): F14.20 - Cocaine dependence, uncomplicated (5) Insomnia Current Visit: No Status: Chronic (6) Nicotine dependence Current Visit: No Status: Chronic Qualifiers: Nicotine product type: cigarettes Substance use status: uncomplicated Qualified Code(s): F17.210 - Nicotine dependence, cigarettes, uncomplicated (7) Tinea pedis Current Visit: No Status: Chronic Qualifiers: Laterality: right Qualified Code(s): B35.3 - Tinea pedis (8) Arthritis Current Visit: Yes Status: Acute Cleared for Admission [facility] - Detox or Rehab [facility] Level of Care: Medically Managed Detox Regimen/Protocol: Librium [facility] Breath Alcohol Content Breath Alcohol Content: 0.018 Urine Pregancy Test - Result Urine Test Results: Negative- NO Line Present Urine Drug Screen - Results Drug Screen Negative: No Urine Drug Screen Results: MALDONADO-Cocaine
[2018-09-14] MEDS ORDERED: MAG HYDROX/AL HYDROX/SIMETH 30 ML UNIT-DOSE CUP PO PRN (14:16)
[2018-09-14] MEDS ORDERED: chlordiazePOXIDE HCL 25 MG CAPSULE PO PRN (14:16)
[2018-09-14] MEDS ORDERED: MAGNESIUM CITRATE 300 ML BOTTLE PO PRN (14:16)
[2018-09-14] MEDS ORDERED: IBUPROFEN 400 MG TABLET (FP) PO PRN (14:16)
[2018-09-14] MEDS ORDERED: P-EPHED 60MG/TRIPROLIDI 2.5MG TABLET PO PRN (14:16)
[2018-09-14] MEDS ORDERED: guaiFENesin/D-METHORPHAN HB 10 ML UNIT-DOSE CUPS PO PRN (14:16)
[2018-09-14] MEDS ORDERED: LOPERAMIDE HCL 2 MG CAPSULE PO PRN (14:16)
[2018-09-14] MEDS ORDERED: MENTHOL/PHENOL 1 EACH UD MM PRN (14:16)
[2018-09-14] MEDS ORDERED: NICOTINE POLACRILEX 2 MG GUM BUC PRN (14:16)
[2018-09-14] MEDS ORDERED: hydrOXYzine PAMOATE 25 MG CAPSULE (FP) PO PRN (14:16)
[2018-09-14] MEDS: NICOTINE 21 MG/24 HOURS TOPICAL PATCH TD SCH (15:55)
[2018-09-14] MEDS: chlordiazePOXIDE HCL 25 MG CAPSULE PO SCH ×2 (17:45→22:21)
[2018-09-14] MEDS: ACETAMINOPHEN 325 MG TABLET (FP) PO PRN (20:51)
[2018-09-14] MEDS ORDERED: MELATONIN 5 MG TABLETS PO PRN (22:00)
[2018-09-14] MEDS: THIAMINE HCL 100 MG TABLET (FP) PO SCH (22:20)
[2018-09-14] MEDS: CYCLOBENZAPRINE HCL 10 MG TABLET (FP) PO SCH (22:20)
[2018-09-14] MEDS: DICLOFENAC SODIUM 75 MG TABLET.DR PO SCH (22:49)
[2018-09-15] MEDS: ACETAMINOPHEN 325 MG TABLET (FP) PO PRN (04:04)
[2018-09-15] MEDS: chlordiazePOXIDE HCL 25 MG CAPSULE PO SCH ×4 (05:42→22:21)
[2018-09-15] MEDS: DICLOFENAC SODIUM 75 MG TABLET.DR PO SCH ×2 (10:08→22:21)
[2018-09-15] MEDS: METHYL SALICYLATE/MENTHOL OINT 30 GM TUBE TP SCH ×2 (10:08→22:21)
[2018-09-15] MEDS: PRENATAL VITAMINS W/ FOLIC ACID TABLET (FP) PO SCH (10:08)
[2018-09-15] MEDS: NICOTINE 21 MG/24 HOURS TOPICAL PATCH TD SCH (10:10)
[2018-09-15 10:23] LABS: ALBUMIN 3.6 g/dl (3.4-5.0); ALK PHOS 80 U/L (45-117); ANION GAP 6 MMOL/L (8-16); BILIRUBIN,TOTAL 0.2 mg/dL (0.2-1); BLOOD UREA NITROGEN 20 mg/dL (7-18); CALCIUM 8.2 mg/dL (8.5-10.1); CHLORIDE 110 mmol/L (98-107); CO2 25 mmol/L (21-32); CREATININE 1.4 mg/dL (0.55-1.3); GLUCOSE,RANDOM 112 mg/dL (74-106); SGOT/AST 18 U/L (15-37); SGPT/ALT 14 U/L (13-61); SODIUM 141 mmol/L (136-145); TOT PROT 6.8 g/dl (6.4-8.2)
[2018-09-15 10:55] LABS: HEMATOCRIT 36.1 % (32.4-45.2); HEMOGLOBIN 11.8 GM/dL (10.7-15.3); MCH 32.9 pg (25.7-33.7); MCHC 32.8 g/dl (32.0-36.0); MEAN CELL VOLUME 100.3 fl (80-96); MEAN PLT VOLUME 8.2 fl (7.5-11.1); PLATELET COUNT 252 K/MM3 (134-434); RDW 13.8 % (11.6-15.6); WHITE BLOOD COUNT 3.2 K/mm3 (4.0-10.0)
--- NOTE | 2018-09-15 12:15 | PN ---
S CIWA - CIWA Score Nausea/Vomitin-Mild Nausea/No Vomiting Muscle Tremors: 4-Moderate,w/Arms Extend Anxiety: 2 Agitation: 3 Paroxysmal Sweats: 1-Minimal Palms Moist Orientation: 1-Uncertain about Date Tacttile Disturbances: 0-None Auditory Disturbances: 0-None Visual Disturbances: 0-None Headache: 2-Mild CIWA-Ar Total Score: 14 S Progress Note (SOAP) Subjective: tremor sweat restlessness headaches reports in pain management program last 90 pills oxy on 08/19/18 Objective: 09/15/18 12:19 Vital Signs Temperature 97.9 F 09/15/18 09:35 Pulse Rate 67 09/15/18 09:35 Respiratory Rate 16 09/15/18 09:35 Blood Pressure 141/83 09/15/18 09:35 O2 Sat by Pulse Oximetry (%) Laboratory Last Values WBC 3.2 K/mm3 (4.0-10.0) L 09/15/18 07:30 RBC 3.60 M/mm3 (3.60-5.2) 09/15/18 07:30 Hgb 11.8 GM/dL (10.7-15.3) 09/15/18 07:30 Hct 36.1 % (32.4-45.2) 09/15/18 07:30 MCV 100.3 fl (80-96) H 09/15/18 07:30 MCH 32.9 pg (25.7-33.7) 09/15/18 07:30 MCHC 32.8 g/dl (32.0-36.0) 09/15/18 07:30 RDW 13.8 % (11.6-15.6) 09/15/18 07:30 Plt Count 252 K/MM3 (134-434) 09/15/18 07:30 MPV 8.2 fl (7.5-11.1) 09/15/18 07:30 Sodium 141 mmol/L (136-145) 09/15/18 07:30 Potassium 4.0 mmol/L (3.5-5.1) 09/15/18 07:30 Chloride 110 mmol/L (98-107) H 09/15/18 07:30 Carbon Dioxide 25 mmol/L (21-32) 09/15/18 07:30 Anion Gap 6 MMOL/L (8-16) L 09/15/18 07:30 BUN 20 mg/dL (7-18) H 09/15/18 07:30 Creatinine 1.4 mg/dL (0.55-1.3) H 09/15/18 07:30 Creat Clearance w eGFR 38.62 (>60) 09/15/18 07:30 Random Glucose 112 mg/dL (74-106) H 09/15/18 07:30 Calcium 8.2 mg/dL (8.5-10.1) L 09/15/18 07:30 Total Bilirubin 0.2 mg/dL (0.2-1) 09/15/18 07:30 AST 18 U/L (15-37) 09/15/18 07:30 ALT 14 U/L (13-61) 09/15/18 07:30 Alkaline Phosphatase 80 U/L (45-117) 09/15/18 07:30 Total Protein 6.8 g/dl (6.4-8.2) 09/15/18 07:30 Albumin 3.6 g/dl (3.4-5.0) 09/15/18 07:30 RPR Titer Nonreactive (NONREACTIVE) 09/15/18 07:30 lab noted repeat wbc 09/15/18 12:24 utox negative opiate Assessment: 09/15/18 12:20 withdrawal sx pain management repeat wbc Plan: continue detox
[2018-09-15] MEDS ORDERED: cloNIDine HCL 0.1 MG TABLET PO PRN (12:22)
[2018-09-15] MEDS: MAGNESIUM HYDROX 2400MG/30ML ORAL SUSPENSION 30 ML CUP PO PRN (20:36)
[2018-09-15] MEDS: THIAMINE HCL 100 MG TABLET (FP) PO SCH (22:21)
[2018-09-15] MEDS: CYCLOBENZAPRINE HCL 10 MG TABLET (FP) PO SCH (22:21)
[2018-09-16] MEDS: chlordiazePOXIDE HCL 25 MG CAPSULE PO SCH ×2 (06:06→10:55)
[2018-09-16] MEDS: METHYL SALICYLATE/MENTHOL OINT 30 GM TUBE TP SCH ×2 (10:54→22:29)
[2018-09-16] MEDS: DICLOFENAC SODIUM 75 MG TABLET.DR PO SCH ×2 (10:55→22:31)
[2018-09-16] MEDS: PRENATAL VITAMINS W/ FOLIC ACID TABLET (FP) PO SCH (10:55)
[2018-09-16] MEDS: NICOTINE 21 MG/24 HOURS TOPICAL PATCH TD SCH (10:56)
--- NOTE | 2018-09-16 11:39 | PN ---
[facility] CIWA - CIWA Score Nausea/Vomitin-No Nausea/No Vomiting Muscle Tremors: 3 Anxiety: 3 Agitation: 3 Paroxysmal Sweats: 3 Orientation: 0-Oriented Tacttile Disturbances: 0-None Auditory Disturbances: 0-None Visual Disturbances: 0-None Headache: 0-None Present CIWA-Ar Total Score: 12 S Progress Note (SOAP) Subjective: chronic pain agitation sweats Objective: 09/16/18 11:40 Vital Signs Temperature 98.8 F 09/16/18 09:10 Pulse Rate 79 09/16/18 09:10 Respiratory Rate 18 09/16/18 09:10 Blood Pressure 149/89 09/16/18 09:10 O2 Sat by Pulse Oximetry (%) Laboratory Tests 09/15/18 09/15/18 09/15/18 07:30 07:30 07:30 WBC 3.2 L RBC 3.60 Hgb 11.8 Hct 36.1 MCV 100.3 H MCH 32.9 MCHC 32.8 RDW 13.8 Plt Count 252 MPV 8.2 Sodium 141 Potassium 4.0 Chloride 110 H Carbon Dioxide 25 Anion Gap 6 L BUN 20 H Creatinine 1.4 H Creat Clearance w eGFR 38.62 Random Glucose 112 H Calcium 8.2 L Total Bilirubin 0.2 AST 18 ALT 14 Alkaline Phosphatase 80 Total Protein 6.8 Albumin 3.6 RPR Titer Nonreactive aaox3 ambulating no acute distress Assessment: 09/16/18 11:40 withdrawal sx Plan: continue detox increase fluids lidocaine patch continue analgesic balm
[2018-09-16] MEDS ORDERED: LIDOCAINE 5% TOPICAL PATCH TP ONE (12:30)
[2018-09-16 17:59] LABS: HEMOGLOBIN 11.6 GM/dL (10.7-15.3); MCH 34.6 pg (25.7-33.7); MEAN CELL VOLUME 98.7 fl (80-96); MEAN PLT VOLUME 8.3 fl (7.5-11.1); PLATELET COUNT 256 K/MM3 (134-434); RBC 3.35 M/mm3 (3.60-5.2); WHITE BLOOD COUNT 2.9 K/mm3 (4.0-10.0)
[2018-09-16] MEDS: chlordiazePOXIDE 5 MG CAPSULE PO SCH ×2 (18:10→23:04)
[2018-09-16] MEDS: CYCLOBENZAPRINE HCL 10 MG TABLET (FP) PO SCH (22:30)
[2018-09-16] MEDS: LIDOCAINE PATCH REMOVAL MC SCH (22:30)
[2018-09-16] MEDS: THIAMINE HCL 100 MG TABLET (FP) PO SCH (22:31)
[2018-09-17] MEDS: MAGNESIUM HYDROX 2400MG/30ML ORAL SUSPENSION 30 ML CUP PO PRN (05:16)
[2018-09-17] MEDS: chlordiazePOXIDE 5 MG CAPSULE PO SCH ×2 (05:16→10:11)
[2018-09-17] MEDS: DICLOFENAC SODIUM 75 MG TABLET.DR PO SCH ×2 (10:11→22:20)
[2018-09-17] MEDS: PRENATAL VITAMINS W/ FOLIC ACID TABLET (FP) PO SCH (10:11)
[2018-09-17] MEDS: LIDOCAINE 5% TOPICAL PATCH TP SCH (10:14)
[2018-09-17] MEDS: METHYL SALICYLATE/MENTHOL OINT 30 GM TUBE TP SCH ×2 (10:14→22:19)
[2018-09-17] MEDS: NICOTINE 21 MG/24 HOURS TOPICAL PATCH TD SCH (10:14)
--- NOTE | 2018-09-17 12:01 | PN ---
[facility] Progress Note (SOAP) Subjective: interrupted slep, lbp,arthritis, Objective: 09/17/18 11:59 Vital Signs Temperature 97.3 F L 09/17/18 09:27 Pulse Rate 65 09/17/18 09:27 Respiratory Rate 16 09/17/18 09:27 Blood Pressure 158/85 09/17/18 09:27 O2 Sat by Pulse Oximetry (%) Laboratory Tests 09/15/18 09/15/18 09/15/18 07:30 07:30 07:30 WBC 3.2 L RBC 3.60 Hgb 11.8 Hct 36.1 MCV 100.3 H MCH 32.9 MCHC 32.8 RDW 13.8 Plt Count 252 MPV 8.2 Sodium 141 Potassium 4.0 Chloride 110 H Carbon Dioxide 25 Anion Gap 6 L BUN 20 H Creatinine 1.4 H Creat Clearance w eGFR 38.62 Random Glucose 112 H Calcium 8.2 L Total Bilirubin 0.2 AST 18 ALT 14 Alkaline Phosphatase 80 Total Protein 6.8 Albumin 3.6 RPR Titer Nonreactive 09/16/18 10:15 WBC 2.9 L RBC 3.35 L Hgb 11.6 Hct 33.0 MCV 98.7 H MCH 34.6 H MCHC 35.0 RDW 14.0 Plt Count 256 MPV 8.3 Sodium Potassium Chloride Carbon Dioxide Anion Gap BUN Creatinine Creat Clearance w eGFR Random Glucose Calcium Total Bilirubin AST ALT Alkaline Phosphatase Total Protein Albumin RPR Titer pt aox3 in nad ambulating Assessment: 09/17/18 12:00 withdrawal sx's lbp 09/17/18 12:01 leukopenia Plan: cont. detox increase fluids lidocaine patch d/c in am
[2018-09-17] MEDS: chlordiazePOXIDE HCL 10 MG CAPSULE PO SCH ×2 (17:38→22:19)
[2018-09-17] MEDS: CYCLOBENZAPRINE HCL 10 MG TABLET (FP) PO SCH (22:19)
[2018-09-17] MEDS: FERROUS SO4 325 MG TABLET (FP) PO SCH (22:19)
[2018-09-17] MEDS: THIAMINE HCL 100 MG TABLET (FP) PO SCH (22:19)
[2018-09-17] MEDS: LIDOCAINE PATCH REMOVAL MC SCH (22:20)
[2018-09-18] MEDS: chlordiazePOXIDE HCL 10 MG CAPSULE PO SCH ×2 (05:35→10:26)
--- NOTE | 2018-09-18 09:03 | DS ---
[facility] Detox Discharge Summary Admission Date: 09/14/18 Discharge Date: 09/18/18 - History Present History: Alcohol Dependence, Cocaine Dependence - Physical Exam Results Vital Signs: Vital Signs Temperature 97.7 F 09/18/18 05:59 Pulse Rate 58 L 09/18/18 05:59 Respiratory Rate 20 09/18/18 05:59 Blood Pressure 154/90 09/18/18 05:59 O2 Sat by Pulse Oximetry (%) - Treatment Hospital Course: Detox Protocol Followed, Detoxed Safely, Responded well, Discharged Condition Good, Rehab Referral Accepted - Medication Discharge Medications: Ambulatory Orders Aspirin [Aspirin EC] 1 tablet PO DAILY 08/02/16 Divalproex [Depakote -] 500 mg PO BID 08/02/16 Fluticasone Prop 0.05% Nasal [Flonase -] 1 spray NS DAILY 08/02/16 Cetirizine HCl 10 mg PO DAILY 10/18/16 Cyclobenzaprine HCl [Flexeril -] 10 mg PO HS 10/18/16 Diclofenac Sodium [Voltaren -] 75 mg PO BID 10/18/16 Meloxicam [Mobic (Nf) -] 15 mg PO DAILY 10/18/16 Simvastatin [Zocor -] 20 mg PO HS 10/18/16 Divalproex [Depakote -] 500 mg PO BID #60 tablet.ec 10/19/16 - Diagnosis (1) Arthritis Current Visit: Yes Status: Chronic (2) Alcohol dependence with uncomplicated withdrawal Current Visit: Yes Status: Chronic (3) Bipolar disorder Current Visit: Yes Status: Chronic (4) History of anemia Current Visit: Yes Status: Chronic (5) Status post right foot surgery Current Visit: No Status: Acute (6) UTI (urinary tract infection) Current Visit: Yes Status: Acute (7) Bipolar II disorder Current Visit: No Status: Chronic (8) Cocaine dependence Current Visit: Yes Status: Chronic Qualifiers: Substance use status: uncomplicated Qualified Code(s): F14.20 - Cocaine dependence, uncomplicated (9) Insomnia Current Visit: No Status: Chronic (10) Nicotine dependence Current Visit: Yes Status: Chronic Qualifiers: Nicotine product type: cigarettes Substance use status: uncomplicated Qualified Code(s): F17.210 - Nicotine dependence, cigarettes, uncomplicated - AMA Did Patient Leave Against Medical Advice: No (REFERRED TO [facility])
[2018-09-18 09:34] VITALS: BP 161/87; PULSE 72; TEMP 97.9
[2018-09-18] MEDS: FERROUS SO4 325 MG TABLET (FP) PO SCH (09:51)
[2018-09-18] MEDS: DICLOFENAC SODIUM 75 MG TABLET.DR PO SCH (09:52)
[2018-09-18] MEDS: LIDOCAINE 5% TOPICAL PATCH TP SCH (09:53)
[2018-09-18] MEDS: NICOTINE 21 MG/24 HOURS TOPICAL PATCH TD SCH (09:53)
[2018-09-18] MEDS: METHYL SALICYLATE/MENTHOL OINT 30 GM TUBE TP SCH (09:54)
[2018-09-18] MEDS: PRENATAL VITAMINS W/ FOLIC ACID TABLET (FP) PO SCH (10:26)
== END 2018-09-18 12:03 | disposition home or self-care (01) | DRG 774 ==
LOC: YASAS 12:58 → Y6N 14:18
PROC: HZ2ZZZZ Detoxification Services for Substance Abuse Treatment (ICD-10-PCS; principal; 2018-09-14)
DX: F10.230 Alcohol dependence with withdrawal, uncomplicated (principal); F14.20 Cocaine dependence, uncomplicated; F17.210 Nicotine dependence, cigarettes, uncomplicated; F31.81 Bipolar II disorder; G47.00 Insomnia, unspecified; N39.0 Urinary tract infection, site not specified; M19.90 Unspecified osteoarthritis, unspecified site; M54.5 Low back pain; D72.819 Decreased white blood cell count, unspecified; B35.3 Tinea pedis; D64.9 Anemia, unspecified
CPT/HCPCS: 36415; 80053; 85027; 86593; J0735